=== PATIENT | female | born 1980 | race Caucasian/White ===

== ENCOUNTER 2021-07-08 17:52 | Emergency (ER) | payer OTHER ==
[~2021-07-08 17:52] MED LIST: PREDNISONE50 MG PO
[2021-07-08 18:47] LABS: BASOPHIL 0.5 % (0-2); EOSINOPHIL 0.5 % (0-5); HCT 45.6 % (37.0-47.0); HGB 15.4 g/dl (12.5-16.0); LYMPHOCYTE 14.9 % (15-48); MCH 32.7 pg (25.0-31.0); MCHC 33.8 g/dL (32.0-36.0); MCV 96.8 fL (78.0-100.0); MONOCYTE 5.4 % (0-12); MPV 10.9 fL (6.0-9.5); NEUTROPHIL 78.3 % (41-80); NRBC 0; PLT 390 K/uL (150-400); RBC 4.71 M/uL (4.20-5.40); RDW 12.2 % (11.5-14.0); WBC 12.9 K/uL (4.0-10.5)
[2021-07-08 19:10] LABS: CREATININE 0.94 mg/dL (0.51-0.95); POTASSIUM 4.2 mmol/L (3.5-5.1)
[2021-07-08] MEDS ORDERED: AMOX TR-K CLV1 EAC4 PO (22:38)
[2021-07-08] MEDS ORDERED: FIORICET1 EACH PO (22:39)
== END 2021-07-08 23:19 | disposition home or self-care (01) ==
LOC: FER 17:52
PROVIDERS: Nurse Practitioner Family
DX: G43.909 Migraine, unspecified, not intractable, without status migrainosus (principal); J32.0 Chronic maxillary sinusitis
CPT/HCPCS: 36415; 70450; 80048; 85025; 96372; J1100; J1200; J1885; J2405; J3030; J7030